=== PATIENT | male | born 1980 | race Caucasian/White ===

== ENCOUNTER 2017-11-18 20:41 | Emergency (ER) | payer SELFPAY ==
[2017-11-18 20:43] VITALS: BP 126/87; PULSE 70; RESP 18; TEMP 36.1; O2SAT 100; BMI 24.8
--- NOTE | 2017-11-18 20:56 | US_ITS ---
STUDY: SCROTUM ULTRASOUND REASON FOR EXAM: Male, 37 years old. LT TESTICLE PAIN AND SWELLING TECHNIQUE: Ultrasound evaluation of the scrotum was performed with color Doppler and static donahue-scale imaging. COMPARISON: None. FINDINGS: RIGHT TESTICLE INTRATESTICULAR: There is a normal size of the right testicle. The right testicle measures 4.3 x 3 x 2.5 cm. There is a homogenous echotexture. There is normal arterial and normal venous vascularity. There is no demonstrated right testicular mass or cyst. EXTRATESTICULAR: The epididymis is normal in size. The epididymis head measures 1.4 x 1 x 0.9 cm. There is normal vascularity of the epididymis. There is no demonstrated epididymal cystic structure. There is a small hydrocele. This does contain debris. There is no demonstrated varicocele. There is no demonstrated extratesticular mass or cyst. LEFT TESTICLE INTRATESTICULAR: There is a normal size of the left testicle. The left testicle measures 4.8 x 3 x 2.4 cm. There is a homogenous echotexture. There is normal arterial and normal venous vascularity. There is no demonstrated left testicular mass or cyst. EXTRATESTICULAR: The epididymis is normal in size. The epididymis head measures 1.7 x 0.6 x 0.8 cm. There is normal vascularity of the epididymis. There is no demonstrated epididymal cystic structure. There is a small hydrocele. This does contain debris. There is no demonstrated varicocele. There is no demonstrated extratesticular mass or cyst. US/Testicular with Arterial Flow IMPRESSION: Normal bilateral testicles without evidence for testicular torsion. Small bilateral testicular hydroceles containing debris. Electronically Signed: Anjum Lozada MD at 21:47 EDT , Service support ,
--- NOTE | 2017-11-18 21:02 | ED.VISSUMM ---
- ER Visit Summary Date of Service: 11/18/17 Chief Complaint: Left-sided scrotal pain History of Present Illness: The patient is a 37 M complaining of a 2-3-day history of gradual onset of left scrotal pain. He denies any discharge. He denies any hematuria. He denies any fever. Denies any prior history. He said the pain began on Tuesday after having sex with his significant other. It has gradually gotten worse. Physical Examination: Well-appearing male. Vital signs are stable afebrile. H EENT exam unremarkable. Neck nontender. No lymphadenopathy. Lungs clear to auscultation bilaterally. Heart rate and rhythm no murmur. Abdomen soft. Nondistended. Normal bowel sounds. No peritoneal signs. External exam there is no obvious hernias. No obvious masses. Both testicles are in the same position. There is no signs of torsion. He has mild discomfort to the left hemiscrotum. There appears to be a varicocele inferior to his left testicle. I do not feel any masses. The testicles are not significantly swollen. There is no redness or warmth. The right testicle is nontender. There is no inguinal lymphadenopathy. I do not appreciate any hernia. And there are no lesions. He is circumcised. There is no discharge. Moving all 4 extremities. Neurologically is awake and alert with no focal motor deficits. Back is nontender. Test Results: Urinalysis shows normal. No white or red blood cells microscopically. No bacteria. Testicular ultrasound is unremarkable except from small bilateral hydroceles. No torsion. No masses. No varicoceles. Emergency Department Course and Treatment: Novice p.o. for pain Repeat exam at 20 1:56 PM. Patient is doing well. External exam is normal. I do not appreciate any hernias at all. However test results of both he and his significant other and are comfortable being discharged home. Treatment Plan: Tylenol and/or Motrin for pain. Follow-up as needed. Disposition: Discharge Impression: Acute left scrotal pain secondary to uncertain etiology This note was generated with [employer] software. It may contain incorrect words, spelling, and punctuation that were not noted in review of the chart prior to signing ED Disposition - Plan for ED Patient: Chief Complaint: Male Pain/Injury Referrals: Yohannes Dunaway MD [Primary Care Provider] -
[2017-11-18] MEDS: HYDROcodone Bitartrate/Apap 5/325 Tablet PO (21:06)
--- NOTE | 2017-11-18 21:06 | ED.DCSUM_ITS ---
- ER Visit Summary Date of Service: 11/18/17 Chief Complaint: Left-sided scrotal pain History of Present Illness: The patient is a 37 M complaining of a 2-3-day history of gradual onset of left scrotal pain. He denies any discharge. He denies any hematuria. He denies any fever. Denies any prior history. He said the pain began on Tuesday after having sex with his significant other. It has gradually gotten worse. Physical Examination: Well-appearing male. Vital signs are stable afebrile. H EENT exam unremarkable. Neck nontender. No lymphadenopathy. Lungs clear to auscultation bilaterally. Heart rate and rhythm no murmur. Abdomen soft. Nondistended. Normal bowel sounds. No peritoneal signs. External exam there is no obvious hernias. No obvious masses. Both testicles are in the same position. There is no signs of torsion. He has mild discomfort to the left hemiscrotum. There appears to be a varicocele inferior to his left testicle. I do not feel any masses. The testicles are not significantly swollen. There is no redness or warmth. The right testicle is nontender. There is no inguinal lymphadenopathy. I do not appreciate any hernia. And there are no lesions. He is circumcised. There is no discharge. Moving all 4 extremities. Neurolo gically is awake and alert with no focal motor deficits. Back is nontender. Test Results: Urinalysis shows normal. No white or red blood cells microscopically. No bacteria. Testicular ultrasound is unremarkable except from small bilateral hydroceles. No torsion. No masses. No varicoceles. Emergency Department Course and Treatment: [place] p.o. for pain Repeat exam at 20 1:56 PM. Patient is doing well. External exam is normal. I do not appreciate any hernias at all. However test results of both he and his significant other and are comfortable being discharged home. Treatment Plan: Tylenol and/or Motrin for pain. Follow-up as needed. Disposition: Discharge Impression: Acute left scrotal pain secondary to uncertain etiology This note was generated with [employer] software. It may contain incorrect words, spelling, and punctuation that were not noted in review of the chart prior to signing ED Disposition - Plan for ED Patient: Chief Complaint: Male Pain/Injury Referrals: Yhoannes Dunaway MD [Primary Care Provider] -
[2017-11-18 21:12] LABS: Bacteria 0 SEEN /hpf (None Seen); Mucous, Urine 0 SEEN /hpf (<or=2+); Red Blood Cells-Urine 0 SEEN /hpf (0-5); White Blood Cells 0 SEEN /hpf (0-5)
[2017-11-18 21:14] LABS: Color, Urine Yellow (Yellow); Glucose, Dipstick Normal (Normal); Ketone-Dipstick Negative (Negative); Leukocyte Esterase-Dipstick Negative /ul (Negative); Nitrite-Dipstick Negative (Negative); Occult Blood-Urine Negative /ul (Negative); Protein-Dipstick Negative (Negative); Urine Bilirubin Dipstick Negative (Negative); Urine Clarity Clear (Clear); Urine Urobilinogen Normal (Normal)
[2017-11-18 21:21] LABS: Squamous Epithelial Cells - UA 0-5 SEEN /hpf (0-5)
--- NOTE | 2017-11-18 22:04 | ED.DEP ---
ED Disposition - Plan for ED Patient: Disposition: Home or Assisted Living Chief Complaint: Male Pain/Injury Instructions: ED Testicular Pain [facility] Referrals: Yohannes Dunaway MD [Primary Care Provider] - As Needed Additional Instructions: Tylenol and/or Motrin for pain. Follow-up with your doctor if not improving.
[2017-11-18 22:09] VITALS: BP 142/95; PULSE 61; TEMP -9.4; TEMP 15; O2SAT 95
== END 2017-11-18 22:10 | disposition home or self-care (01) ==
PROVIDERS: Emergency Provider Emergency Medicine; Family Provider Family Medicine; PCP Family Medicine
DX: N50.82 Scrotal pain (principal); I86.1 Scrotal varices; N43.3 Hydrocele, unspecified; R11.0 Nausea; Z72.0 Tobacco use
CPT/HCPCS: 76870; 81001; 93976; 99283